=== PATIENT | male | born 1950 | race Caucasian/White ===

== ENCOUNTER → 2017-07-10 | Outpatient (CLI) | payer MEDICARE ==
[~2017-07-10] MED LIST: ASPIR 8181 MG PO; AVALIDE; CLOPIDOGREL75 MG PO; IOPAMIDOL 370 MG/ML 200 ML INFUS..BTL INJ ONE; IRBESARTAN150 MG PO; IRBESARTAN300 MG PEG; LORAZEPAM1 MG PO; NICOTINE PATCH1 EAC1 EXT; PRAVASTATIN SOD40 MG PO; SODIUM CHLORIDE 0.9% 50ML 50 ML ONE; TRAMADOL PO; ULTRAM50 MG PO; Z.0.ATIVAN1 MG PO; Z.0.CARAFATE1 GM/10 PO; Z.0.PROTONIX40 MG PO; [UNRECOGNIZED DRUG - OTHER]
[2017-07-10 09:07] LABS: BLOOD UREA NITROGEN 17 mg/dL (7-26); BUN/CREATININE RATIO 21 (6-25); CREATININE, SERUM 0.81 mg/dL (0.72-1.25); EST GLOMERULAR FILTRATION RATE > 60 ML/MIN (60-)
--- NOTE | 2017-07-10 10:31 | Diagnostic Imaging Report ---
PROCEDURE:CT CHEST W COMPARISON:None. INDICATIONS:Syncopal episode Technique:Routine protocol Volumetric CT chest after administration of 100 mL Isovue-370 intravenous contrast. Multiplanar reformatted images. DLP: 634.07 FINDINGS: Lungs: Mild centrilobular emphysema. Otherwise, normal Pulmonary nodules: Right middle lobe, noncalcified 5 mm (image 82, series 3) Right upper lobe, noncalcified 5 mm (image 70, series 3) Left upper lobe, calcified 5 mm (image 44, series 3) Airways: Diffuse cylindrical bronchiectasis with sporadic trace bronchial wall thickening. Lymph nodes: Normal Pleura: Normal Pulmonary arteries: Normal caliber. No filling defects. Thoracic aorta and great vessels: Ascending thoracic aorta diameter at the level of the right pulmonary artery 4.5 cm (image 73, series 2). Mild calcified and noncalcified atheromatous plaque at the great vessel origins. Trace noncalcified atheromatous plaque/intimal thickening at the origin of the left common carotid artery (image 45, series 2). Common carotid arteries are otherwise normal. Heart and pericardium: Normal size. No pericardial effusion. Mild atherosclerosis of the left, left anterior descending and circumflex coronary arteries. LAD stent. Subdiaphragmatic organs: Imaged portions are normal. Skeleton: Multilevel degenerative disc disease. Preserved vertebral body height. Intact. Soft tissues: Normal CONCLUSION: 1. 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 2. Emphysema. 3. Multiple 5 mm pulmonary nodules. If the patient is a smoker or exposed to smoke consider followup CT chest in 6-12 months, then 18-24 months. Dictated by: Lane White M.D. on 07/10/2017 at 10:39 Electronically approved by: Lane White M.D. on 07/10/2017 at 10:39
== END ==
LOC: CT 08:29
PROVIDERS: ATTEND Internal Medicine Interventional Cardiology
DX: R04.2 Hemoptysis (principal)
CPT/HCPCS: 36415; 71260; 82565; 84520; Q9967

== ENCOUNTER → 2017-11-11 | Day surgery (SDC) | payer MEDICARE ==
[2017-11-06 12:52] LABS: BASOPHILS # (AUTO) 0.1 (0.0-0.1); BASOPHILS % 0.7 % (0.0-1.0); EOSINOPHILS # (AUTO) 0.1 (0.0-0.4); EOSINOPHILS % 1.6 % (0.0-6.0); HEMATOCRIT 34.4 % (38.2-49.6); HEMOGLOBIN 11.7 g/dL (14.0-18.0); LYMPHOCYTES # (AUTO) 1.3 (1.0-3.2); LYMPHOCYTES % 15.5 % (18.0-39.1); MEAN CORPUSCULAR HEMOGLOBIN 31.3 pg (28-32); MONOCYTES # (AUTO) 0.7 (0.2-0.8); MONOCYTES % 8.9 % (4.4-11.3); NEUTROPHILS % 72.7 % (38.7-80.0); PLATELET COUNT 248 x10e3/uL (140-360); RED BLOOD COUNT 3.74 x10e6/uL (4.3-5.7); RED CELL DISTRIBUTION WIDTH 12.8 % (11.7-14.4)
[~2017-11-11] MED LIST changes: +FENTANYL CITRATE/PF 100MCG/2 ML INJ ONE; +HYOSCYAMINE SULFATE 0.5 MG/ML AMP ONE; -IOPAMIDOL 370 MG/ML 200 ML INFUS..BTL INJ ONE; -IRBESARTAN300 MG PEG; +IRBESARTAN300 MG PO; +LIDOCAINE HCL 2% LOCAL INJ 5 ML SDV VIAL INJ ONE; +MIDAZOLAM HCL 2 MG/2 ML VIAL ONE; +PRAVASTATIN SOD20 MG; +PROPOFOL IV EMULSION 10 MG/ML 50 ML VIAL ONE; -SODIUM CHLORIDE 0.9% 50ML 50 ML ONE; +ULTRAM 50MG50 MG PO
--- OUTSIDE RECORDS SUMMARY | 2017-11-11 12:29 | XMS REPORT ---
Author Author [facility] Address Unknown Phone Unavailable Care Team Providers Care Application Support Lead Name Role Phone SHAVON ALEJANDRO Unavailable Unavailable Problems This patient has no known problems. Allergies, Adverse Reactions, Alerts This patient has no known allergies or adverse reactions. Medications This patient has no known medications. Results Test Description Test Time Test Comments Text Results Atomic Results Result Comments CT CHEST W [place] [address] Patient Name: SHARON VERNON MR #: [id number] : 1950 Age/Sex: 67/M Req # : [id number] Adm Physician: Ordered by: SHAVON ALEJANDRO MD Report #: [id number] Location: CT Room/Bed: Procedure: [id number] CT/CT CHEST W Exam Date: 07/10/17 Exam Time: 929 REPORT STATUS: Signed PROCEDURE: CT CHEST W COMPARISON: None. INDICATIONS: Syncopal episode Technique: Routine protocol Volumetric CT chest after administration of 100 mL Isovue-370 intravenous contrast. Multiplanar reformatted images. DLP: 634.07 FINDINGS: Lungs: Mild centrilobular emphysema. Otherwise, normal Pulmonary nodules: Right middle lobe, noncalcified 5 mm (image 82, series 3) Right upper lobe, noncalcified 5 mm (image 70, series 3) Left upper lobe, calcified 5 mm (image 44, series 3) Airways: Diffuse cylindrical bronchiectasis with sporadic trace bronchial wall thickening. Lymph nodes: Normal Pleura: Normal Pulmonary arteries: Normal caliber. No filling defects. Thoracic aorta and great vessels: Ascending thoracic aorta diameter at the level of the right pulmonary artery 4.5 cm (image 73, series 2). Mild calcified and noncalcified atheromatous plaque at the great vessel origins. Trace noncalcified atheromatous plaque/intimal thickening at the origin of the left common carotid artery (image 45, series 2). Common carotid arteries are otherwise normal. Heart and pericardium: Normal size. No pericardial effusion. Mild atherosclerosis of the left, left anterior descending and circumflex coronary arteries. LAD stent. Subdiaphragmatic organs: Imaged portions are normal. Skeleton: Multilevel degenerative disc disease. Preserved vertebral body height. Intact. Soft tissues: Normal CONCLUSION: 1. 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 2. Emphysema. 3. Multiple 5 mm pulmonary nodules. If the patient is a smoker or exposed to smoke consider followup CT chest in 6-12 months, then 18-24 months. Dictated by: Mónica White M.D. on 07/10/2017 at 10:39 Electronically approved by: Mónica White M.D. on 07/10/2017 at 10:39 Dictated By: MÓNICA WHITE MD 1039 Transcribed By: MITCHEL on 07/10/17 1039 COPY TO: SHAVON ALEJANDRO MD
[2017-11-11 16:04] LABS: WBC,FECAL (FECAL LACTOFERRIN) NEGATIVE (NEGATIVE)
--- NOTE | 2017-11-11 16:24 | Operative Report ---
DATE OF PROCEDURE: November 11, 2017 REFERRING PHYSICIAN: Dr. Steve Duran PROCEDURES PERFORMED 1. Esophagogastroduodenoscopy with balloon dilatation of pyloric channel stricture and biopsies. 2. Colonoscopy with biopsies. INDICATIONS FOR EGD: History of melena, history of gastric ulcers. INDICATIONS FOR COLONOSCOPY: Colorectal cancer screening. Personal history of colon polyps. History of intermittent diarrhea. MEDICATION: Patient was done under MAC. Please see anesthesiologist's note. PROCEDURE: With the patient in the left lateral decubitus position, the flexible fiberoptic Olympus gastroscope was introduced into the esophagus under direct visualization without any difficulty. There was some patchy erythema noted in the distal esophagus. The scope was then advanced with ease into the stomach, traversing a small hiatal hernia. Mucosa overlying the antrum and the body revealed some patchy erythema and low-grade to moderate edema, and biopsies were obtained and sent to stain for H. pylori. The pyloric channel was strictured and ulcerated. It was dilated to size 18 mm. No dilatation to a larger size was carried out due to the friability and the ulceration of the area to avoid a possible perforation. After the balloon dilatation, the scope still could not be advanced to the duodenum. The scope was then retroflexed. The mucosa overlying the fundus and the cardia appeared to be within normal limits. The scope was then straightened out. The stomach was decompressed. Scope was subsequently withdrawn. Patient tolerated the procedure well. IMPRESSION 1. Distal esophagitis. 2. Small hiatal hernia. 3. Gastritis, biopsied. Biopsies sent to stain for H. pylori. 4. 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 Dilated to size 18 mm per TTS balloon dilators. Scope could not traverse the stricture even after the dilatation. No additional dilatation to a larger size was carried out to avoid possible perforation as the site was ulcerated and friable. PLAN: Follow up histology. Initiate Protonix 40 mg 1 p.o. q.a.m. a.c. Will attempt a repeat EGD in about 2 to 3 weeks with additional dilatation to hopefully size 20 mm per TTS balloon dilators. The patient was then turned around. After adequate lubrication of the anal canal, a flexible fiberoptic Olympus colonoscope was inserted into the rectum with ease and advanced all the way to the cecum. Mucosa overlying the cecum, ascending colon and transverse appeared to be within normal limits. Mucosa overlying the left colon revealed some patchy, mild, inflammatory changes. Some biopsies were obtained. Diverticular disease was noted to involve the sigmoid colon. The scope was then retroflexed into the distal rectum, and moderate-size internal hemorrhoids were noted, none of which was actively bleeding. The scope was then straightened out. It was subsequently withdrawn after securing an adequate stool specimen that was sent for the appropriate stool studies. Patient tolerated the procedure well. IMPRESSION 1. Mild, patchy, left-sided colitis. 2. Diverticulosis. 3. Internal hemorrhoids, none actively bleeding. PLAN: Follow up histology. Follow up stool studies. Initiate VSL #3 DS 1 p.o. daily. Patient might benefit from a followup colonoscopy in 3 to 5 years. Job#: [id number] cc:STEVE DURAN MD
[2017-11-12 13:48] LABS: C DIFFICILE TOXIN A&B AMP PROB NEGATIVE (NEGATIVE)
== END | disposition home or self-care (01) ==
LOC: OR 12:27
PROVIDERS: ATTEND Internal Medicine Gastroenterology
DX: K29.70 Gastritis, unspecified, without bleeding (principal); K31.1 Adult hypertrophic pyloric stenosis; K25.9 Gastric ulcer, unspecified as acute or chronic, without hemorrhage or perforation; K51.50 Left sided colitis without complications; K20.9 Esophagitis, unspecified; K44.9 Diaphragmatic hernia without obstruction or gangrene; K57.30 Diverticulosis of large intestine without perforation or abscess without bleeding; K64.8 Other hemorrhoids; I10 Essential (primary) hypertension; E78.00 Pure hypercholesterolemia, unspecified; I25.10 Atherosclerotic heart disease of native coronary artery without angina pectoris; G47.33 Obstructive sleep apnea (adult) (pediatric); F41.9 Anxiety disorder, unspecified; Z01.810 Encounter for preprocedural cardiovascular examination; Z01.812 Encounter for preprocedural laboratory examination; Z79.02 Long term (current) use of antithrombotics/antiplatelets; Z79.82 Long term (current) use of aspirin; Z95.5 Presence of coronary angioplasty implant and graft; Z87.891 Personal history of nicotine dependence
CPT/HCPCS: 36415; 43239; 43245; 45380; 83630; 83993; 85025; 87045; 87177; 87328; 87493; 88305; 88312; 93005; J1980; J2001; J2250; 43450; 45378

== ENCOUNTER → 2017-12-10 | Day surgery (SDC) | payer MEDICARE ==
[~2017-12-10] MED LIST changes: -HYOSCYAMINE SULFATE 0.5 MG/ML AMP ONE
[2017-12-10 10:04] LABS: BASOPHILS # (AUTO) 0.1 (0.0-0.1); BASOPHILS % 0.9 % (0.0-1.0); EOSINOPHILS # (AUTO) 0.2 (0.0-0.4); HEMATOCRIT 35.4 % (38.2-49.6); HEMOGLOBIN 11.8 g/dL (14.0-18.0); LYMPHOCYTES % 19.7 % (18.0-39.1); MEAN CORPUSCULAR HEMOGLOBIN 30.3 pg (28-32); MEAN CORPUSCULAR HGB CONC 33.3 g/dL (31-35); MONOCYTES # (AUTO) 0.6 (0.2-0.8); NEUTROPHILS # (AUTO) 3.4 (2.1-6.9); NEUTROPHILS % 64.3 % (38.7-80.0); PLATELET COUNT 255 x10e3/uL (140-360); RED BLOOD COUNT 3.89 x10e6/uL (4.3-5.7); RED CELL DISTRIBUTION WIDTH 12.5 % (11.7-14.4)
--- NOTE | 2017-12-10 13:39 | Operative Report ---
DATE OF PROCEDURE: December 10, 2017 REFERRING PHYSICIAN: Dr. Steve Duran PROCEDURE PERFORMED: Esophagogastroduodenoscopy with pyloric stricture balloon dilatation. INDICATIONS FOR PROCEDURE: Tight pyloric stricture dilated in the recent past to size 18 mm per TTS balloon dilators, and the scope could not traverse the stricture even after dilatation. For repeat EGD with additional balloon dilatation. MEDICATION: Patient was done under MAC. Please see anesthesiologist's note. PROCEDURE: With the patient in the left lateral decubitus position, the flexible fiberoptic Olympus gastroscope was introduced into the esophagus under direct visualization without any difficulty. There was a small sliding hiatal hernia noted, and the scope was advanced with ease into the stomach. Mucosa overlying the antrum and the body revealed some patchy erythema. The pyloric channel stricture was noted and could not be traversed with the scope. It was then dilated to size 20 mm per TTS balloon dilators. The stricture post dilatation was traversed with ease, and the scope was advanced all the way to the 2nd portion of the duodenum. The scope was then withdrawn slowly. Mucosa overlying the proximal 2nd portion and the duodenal bulb appeared to be within normal limits. The scope was then withdrawn back into the stomach and retroflexed. The mucosa overlying the fundus and cardia appeared to be within normal limits. The scope was then straightened out. A mucosal tear was noted in the peripyloric area involving the antrum. That was closed with a Hemoclip. The scope was subsequently withdrawn. Patient tolerated the procedure well. IMPRESSION 1. Small sliding hiatal hernia. 2. Gastritis, mild. 3. 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 An antral mucosal tear was sustained during the dilatation, and that was closed with a Hemoclip. PLAN: Continue Protonix 40 mg 1 p.o. q.a.m. a.c. Job#: [id number] cc:STEVE DURAN MD
== END | disposition home or self-care (01) ==
LOC: OR 09:13
PROVIDERS: ATTEND Internal Medicine Gastroenterology
DX: K31.1 Adult hypertrophic pyloric stenosis (principal); K29.70 Gastritis, unspecified, without bleeding; S36.33XA Laceration of stomach, initial encounter; K25.9 Gastric ulcer, unspecified as acute or chronic, without hemorrhage or perforation; K57.92 Diverticulitis of intestine, part unspecified, without perforation or abscess without bleeding; K44.9 Diaphragmatic hernia without obstruction or gangrene; R13.10 Dysphagia, unspecified; I10 Essential (primary) hypertension; H91.90 Unspecified hearing loss, unspecified ear; F41.9 Anxiety disorder, unspecified; X58.XXXA Exposure to other specified factors, initial encounter; Y93.89 Activity, other specified; Y92.234 Operating room of hospital as the place of occurrence of the external cause; Y99.8 Other external cause status; Z79.02 Long term (current) use of antithrombotics/antiplatelets; Z79.82 Long term (current) use of aspirin; Z87.891 Personal history of nicotine dependence
CPT/HCPCS: 36415; 43245; 85025; C1726; J2001; J2250; 43239; 43450